=== PATIENT | female | born 1980 | race Caucasian/White ===

== ENCOUNTER 2017-04-12 09:48 | Emergency (ER) | payer SELFPAY ==
[~2017-04-12] VITALS: Ht 167.6 cm; Wt 72.6 kg
[2017-04-12 09:54] VITALS: BP_SYST 128
--- NOTE | 2017-04-12 10:03 | NUR ---
Patient to ER bed 6 to gown for evaluation. Side rails up. Report given to Nash MCGOWAN.
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
--- NOTE | 2017-04-12 10:24 | NUR ---
Dr. Lance at bedside for evaluation
[2017-04-12 10:40] VITALS: BP_SYST 128
--- NOTE | 2017-04-12 10:40 | NUR ---
Patient given written and verbal discharge instructions and verbalizes understanding. ER MD discussed with patient the results and treatment provided. Patient in stable condition. ID arm band removed. Rx of naproxen, tramadol, soma given. Patient educated on pain management and to follow up with PMD. Pain Scale 2/10. Opportunity for questions provided and answered.
== END 2017-04-12 10:40 | disposition home or self-care (01) ==
LOC: SED 09:48
DX: S46.811A Strain of other muscles, fascia and tendons at shoulder and upper arm level, right arm, initial encounter (principal); V49.59XA Passenger injured in collision with other motor vehicles in traffic accident, initial encounter; Y93.89 Activity, other specified; Y92.488 Other paved roadways as the place of occurrence of the external cause; Y99.8 Other external cause status
CPT/HCPCS: 99283